=== PATIENT | male | born 1930 | race Caucasian/White ===

== ENCOUNTER 2020-02-25 13:22 | Inpatient (IN) | payer OTHER, MEDICARE ==
[~2020-02-25] VITALS: Ht 177.8 cm; Wt 65.2 kg
[~2020-02-25 13:22] MED LIST: ALBU18HF2 PO; BUDE10.2 PO; DONE-46 PO; FINA5TAB11 PO; LEVO750T21 PO; METO25TA6 PO; SIMV-42 PO; UMEC62.5 PO
[2020-02-25] MEDS ORDERED: levoFLOXACIN-Levaquin 750MG/D5 150 ML IV ONE (14:15)
[2020-02-25] MEDS ORDERED: normal saline 1000ML IV soln IV ONE (14:15)
[2020-02-25 14:36] LABS: BASOPHILS # (AUTO) 0.1 X10'3 (0-0.2); BASOPHILS % (AUTO) 0.4 % (0-1); EOSINOPHILS % (AUTO) 0.2 % (0-6); HEMATOCRIT 39.6 % (42.0-52.0); HEMOGLOBIN 12.7 g/dl (14.0-17.9); LYMPHOCYTES # (AUTO) 0.5 X10'3 (1.1-4.8); LYMPHOCYTES % (AUTO) 3.7 % (21-51); MEAN CORPUSCULAR HEMOGLOBIN 29.6 PG (27.0-31.0); MEAN CORPUSCULAR VOLUME 92.3 FL (78-98); MEAN PLATELET VOLUME 7.7 FL (7.4-10.4); MONOCYTES # (AUTO) 0.8 X10'3 (0-0.9); MONOCYTES % (AUTO) 5.9 % (2-12); NEUTROPHILS # (AUTO) 12.4 X10'3 (1.8-7.7); NEUTROPHILS % (AUTO) 89.8 % (42-75); PLATELET COUNT 258 X10'3 (140-440); RED BLOOD COUNT 4.28 X10'6 (4.70-6.10); RED CELL DISTRIBUTION WIDTH 16.1 % (11.5-14.5); WHITE BLOOD COUNT 13.8 X10'3 (4.5-11.0)
[2020-02-25 14:47] LABS: PARTIAL THROMBOPLASTIN TIME 27 SECONDS (22-32)
[2020-02-25 14:49] LABS: ALANINE AMINOTRANSFERASE 12 U/L (12-78); ALBUMIN 2.7 G/DL (3.4-5.0); ALBUMIN/GLOBULIN RATIO 0.7 (1.1-1.5); ALKALINE PHOSPHATASE 81 IU/L (46-116); ANION GAP 8 (8-16); ASPARTATE AMINO TRANSFERASE 15 U/L (10-37); BILIRUBIN,TOTAL 0.6 MG/DL (0.1-1.0); BLOOD UREA NITROGEN 22 MG/DL (7-18); BUN/CREATININE RATIO 18.2 (5.4-32.0); CALCIUM 9.1 MG/DL (8.5-10.1); CHLORIDE 109 MMOL/L (99-107); CREATININE 1.21 MG/DL (0.60-1.10); GLUCOSE 251 MG/DL (70-104); POTASSIUM 4.3 MMOL/L (3.5-5.1); SODIUM 146 MMOL/L (135-145); TOTAL CARBON DIOXIDE 29.5 MMOL/L (24-32); TOTAL PROTEIN 6.6 G/DL (6.4-8.2); eGFR 57 ML/MIN
[2020-02-25] MEDS ORDERED: normal saline 1000ml 1,000 ML IV SCH (15:53)
[2020-02-25] MEDS ORDERED: magnesium Cl slow-release 64mg tablet PO PRN (15:55)
[2020-02-25] MEDS ORDERED: potassium Cl 20 mEq SR tablet PO PRN ×2 (15:55)
[2020-02-25] MEDS ORDERED: ondansetron/PF 4mg/2ml inj IV PRN (15:55)
[2020-02-25] MEDS ORDERED: magnesium 4gm in 100ml NS 100 ML IV PRN (15:55)
[2020-02-25] MEDS ORDERED: acetaminophen 325mg tablet PO PRN (15:55)
[2020-02-25] MEDS ORDERED: magnesium 2GM in 50ml NS 50 ML IV PRN (15:55)
[2020-02-25] MEDS ORDERED: albuterol 2.5 MG/3 ML nebule NEB PRN ×2 (15:55)
[2020-02-25] MEDS ORDERED: potassium CL 10mEq/100ml bag 100 ML IV PRN ×2 (15:55)
[2020-02-25] MEDS: CefTRIAXone/D5W-Rocephin 1gm 50 ML IV SCH (17:50)
--- NOTE | 2020-02-25 18:02 | NUR ---
Pt unable to provide infomration regarind home meds. unable to complete Med Rec @ this time.
[2020-02-25 19:45] VITALS: BP 108/50
[2020-02-25] MEDS: K and/or MAG REPLACEMENT MC SCH (20:00)
[2020-02-25] MEDS: heparin, porcine 5000 units/ml vial SQ SCH (20:53)
[2020-02-25] MEDS ORDERED: LIDOcaine 2% 10ml TOPICAL JELLY (Urojet) TP ONE (22:00)
--- NOTE | 2020-02-25 22:00 | NUR ---
Called Dr. Shelby because patient was c/o inability to void and some discomfort. Patient was bladder scanned and it showed greater than 450mL. Received order to place squires catheter
--- NOTE | 2020-02-25 22:45 | NUR ---
Called Dr. Shelby again because myself and another RN were unable to insert the squires catheter after 3 separate attempts even using a coude catheter. Patient revealed during the attempt that it had been over 24 hours since he had last peed. Dr. Shelby consulted with urologist Dr. Cid to come place patient's catheter.
[2020-02-25 23:00] VITALS: BP 98/51
[2020-02-26 03:00] VITALS: BP 104/51
[2020-02-26 06:14] LABS: BASOPHILS % (AUTO) 0.4 % (0-1); EOSINOPHILS # (AUTO) 0.3 X10'3 (0-0.9); EOSINOPHILS % (AUTO) 2.5 % (0-6); HEMATOCRIT 32.9 % (42.0-52.0); HEMOGLOBIN 10.8 g/dl (14.0-17.9); LYMPHOCYTES % (AUTO) 9.4 % (21-51); MEAN CORPUSCULAR HEMOGLOBIN 30.3 PG (27.0-31.0); MEAN CORPUSCULAR HGB CONC 32.7 g/dL (33.0-36.5); MEAN CORPUSCULAR VOLUME 92.7 FL (78-98); MONOCYTES # (AUTO) 0.8 X10'3 (0-0.9); MONOCYTES % (AUTO) 7.3 % (2-12); NEUTROPHILS # (AUTO) 8.8 X10'3 (1.8-7.7); NEUTROPHILS % (AUTO) 80.4 % (42-75); PLATELET COUNT 222 X10'3 (140-440); RED BLOOD COUNT 3.55 X10'6 (4.70-6.10)
--- NOTE | 2020-02-26 06:23 | NUR ---
Problems reprioritized. Patient report given, questions answered & plan of care reviewed with Alysha FRIAS.
--- NOTE | 2020-02-26 06:37 | NUR ---
Patient in room PCU 3012. I have received report from Alysha FRIAS and had the opportunity to ask questions and assume patient care.
[2020-02-26 06:39] LABS: ALBUMIN 2.1 G/DL (3.4-5.0); ANION GAP 7 (8-16); BLOOD UREA NITROGEN 16 MG/DL (7-18); BUN/CREATININE RATIO 18.6 (5.4-32.0); CALCIUM 8.2 MG/DL (8.5-10.1); CHLORIDE 114 MMOL/L (99-107); CREATININE 0.86 MG/DL (0.60-1.10); GLUCOSE 97 MG/DL (70-104); MAGNESIUM 2.3 MG/DL (1.5-2.4); POTASSIUM 4.1 MMOL/L (3.5-5.1); SODIUM 148 MMOL/L (135-145); TOTAL CARBON DIOXIDE 26.6 MMOL/L (24-32); eGFR 84 ML/MIN
[2020-02-26 07:00] VITALS: BP 116/45
[2020-02-26] MEDS ORDERED: pantoprazole 40mg Tablet.DR PO SCH (07:30)
[2020-02-26] MEDS ORDERED: atorvastatin 10mg tablet PO SCH (08:00)
[2020-02-26] MEDS ORDERED: methylPREDNISolone sod succ/PF 40mg inj. IV SCH (08:00)
[2020-02-26] MEDS ORDERED: finasteride 5mg tablet PO SCH (08:00)
[2020-02-26] MEDS ORDERED: azithromycin 250mg tablet PO SCH (08:00)
[2020-02-26] MEDS ORDERED: donepezil 5mg tablet PO SCH (08:00)
[2020-02-26] MEDS: CefTRIAXone/D5W-Rocephin 1gm 50 ML IV SCH (08:26)
[2020-02-26] MEDS: heparin, porcine 5000 units/ml vial SQ SCH (08:26)
[2020-02-26] MEDS: K and/or MAG REPLACEMENT MC SCH (08:37)
[2020-02-26] MEDS ORDERED: LEVO750T21 PO (08:39)
[2020-02-26] MEDS ORDERED: FURO-150 PO (08:39)
[2020-02-26 11:00] VITALS: BP 116/46
--- NOTE | 2020-02-26 12:26 | NUR ---
Problems reprioritized. Patient report given, questions answered & plan of care reviewed with Nalini FRIAS at OR. Addendum: 02/26/20 at 1227 by Alysha Galicia RN Patient to be picked up at 1400.
--- NOTE | 2020-02-26 14:31 | NUR ---
Patient stable for transfer per MD orders. Discharge instructions discussed with patient and half-way facility and all questions answered. New medications faxed to pharmacy. Telemetry discontinued and radiotelephone operator notified. PIV discontinued, cannula intact. Belongings sent with patient. Patient picked up by Kate Cargo, wheeled to lobby by [facility] staff.
== END 2020-02-26 14:07 | disposition home or self-care (01) | DRG 871 ==
LOC: ER 13:22 → ED HOLD 15:53 → EDBEDREQ 19:21 → PCU 3S 19:56
PROVIDERS: ADMIT Internal Medicine; ATTEND Internal Medicine
PROC: 0T9B80Z Drainage of Bladder with Drainage Device, Via Natural or Artificial Opening Endoscopic (ICD-10-PCS; principal; 2020-02-25)
DX: A41.9 Sepsis, unspecified organism (principal); J18.9 Pneumonia, unspecified organism; J96.21 Acute and chronic respiratory failure with hypoxia; J44.0 Chronic obstructive pulmonary disease with (acute) lower respiratory infection; J44.1 Chronic obstructive pulmonary disease with (acute) exacerbation; N17.9 Acute kidney failure, unspecified; Z20.828 Contact with and (suspected) exposure to other viral communicable diseases; E78.5 Hyperlipidemia, unspecified; F03.90 Unspecified dementia, unspecified severity, without behavioral disturbance, psychotic disturbance, mood disturbance, and anxiety; I10 Essential (primary) hypertension; N36.5 Urethral false passage; N40.1 Benign prostatic hyperplasia with lower urinary tract symptoms; R33.8 Other retention of urine
CPT/HCPCS: 36415; 71045; 80048; 80053; 83735; 83880; 84145; 85025; 85610; 85730; 87040; 87081; 87635; 93005; 94760; 99291; G0378; J0696; J1644; J1956; J2920; J7030